=== PATIENT | male | born 1990 | race Caucasian/White ===

== ENCOUNTER 2023-03-01 21:09 | Day surgery (SDC) | payer OTHER ==
[2023-03-01 21:26] VITALS: BMI 38.6
[2023-03-01] MEDS ORDERED: PIPERACILLIN/TAZOB 4.5 GM 4.5 GM in DEXTROSE 5%-WATER 100 ML IVPB ONE (22:00)
[2023-03-01] MEDS ORDERED: VANCOMYCIN 1 GM/200 ML PREMIX BAG (RESTRICTED TO ID ONLY) IVPB ONE (22:00)
[2023-03-01] MEDS ORDERED: PIPERACILLIN/TAZOB 4.5 GM 4.5 GM/100 ML BAG IVPB ONE (22:20)
[2023-03-01 22:21] LABS: BASO % 0.7 % (0-2.0); EOS % 1.3 % (0-4.5); HEMATOCRIT 36.5 % (35.4-49); HEMOGLOBIN 12.7 GM/dL (11.7-16.9); LYMPH % 26.8 % (8-40); MCH 26.1 pg (25.7-33.7); MCHC 34.7 g/dl (32.0-35.9); MEAN PLT VOLUME 6.6 fl (7.5-11.1); NEUT % 68.2 % (42.8-82.8); PLATELET COUNT 395 10^3/uL (134-434); RBC 4.87 M/mm3 (4.00-5.60); RDW 15.7 % (11.9-15.9); WHITE BLOOD COUNT 12.3 K/mm3 (4.0-10.0)
[2023-03-01 22:27] LABS: INR 1.22 (0.83-1.09); PROTHROMBIN TIME (PATIENT) 14.1 SEC (9.7-13.0)
[2023-03-01 22:30] LABS: ACTIVATED PTT 35.3 SECONDS (25.2-36.5)
[2023-03-01 22:41] LABS: CALCIUM 9.1 mg/dL (8.5-10.1); MAGNESIUM 1.9 mg/dL (1.8-2.4)
[2023-03-01 22:42] LABS: ALBUMIN 3.6 g/dl (3.4-5.0)
[2023-03-01 22:46] LABS: BILIRUBIN,TOTAL 0.4 mg/dL (0.2-1); TOT PROT 8.1 g/dl (6.4-8.2)
[2023-03-01] MEDS ORDERED: VANCOMYCIN/WATER FOR INJ (PEG) 1,000 MG/200 ML BAG IVPB ONE (22:59)
[2023-03-02] MEDS ORDERED: ceFAZolin SODIUM 1 GM VIAL IVPB ONE
[2023-03-02] MEDS ORDERED: ACETAMINOPHEN 1000 MG/100 ML BAG IVPB PRN ×2 (10:33→13:59)
[2023-03-02] MEDS ORDERED: SODIUM CHLORIDE 1,000 ML IV SCH (10:45)
[2023-03-02] MEDS ORDERED: PIPERACILLIN/TAZOB 3.375 GM 3.375 GM in DEXTROSE 5%-WATER - 50 ML IVPB SCH ×5 (11:00→18:00)
[2023-03-02] MEDS ORDERED: MIDAZOLAM HCL 2 MG/2 ML SINGLE DOSE VIAL ONE (11:51)
[2023-03-02] MEDS ORDERED: PROPOFOL 20 ML ONE (12:13)
[2023-03-02] MEDS: SODIUM CHLORIDE 1,000 ML IV SCH (16:15)
[2023-03-02 17:46] VITALS: RESP 18
[2023-03-02] MEDS: PIPERACILLIN/TAZOB 3.375 GM 3.375 GM in DEXTROSE 5%-WATER - 50 ML IVPB SCH (17:46)
[2023-03-03] MEDS: PIPERACILLIN/TAZOB 3.375 GM 3.375 GM in DEXTROSE 5%-WATER - 50 ML IVPB SCH ×3 (01:38→17:37)
[2023-03-03 09:04] LABS: HEMATOCRIT 29.9 % (35.4-49); HEMOGLOBIN 10.9 GM/dL (11.7-16.9); MCH 27.4 pg (25.7-33.7); MCHC 36.4 g/dl (32.0-35.9); MEAN CELL VOLUME 75.3 fl (80-96); MEAN PLT VOLUME 6.5 fl (7.5-11.1); PLATELET COUNT 330 10^3/uL (134-434); RBC 3.97 M/mm3 (4.00-5.60); RDW 15.4 % (11.9-15.9); WHITE BLOOD COUNT 10.7 K/mm3 (4.0-10.0)
[2023-03-03 09:20] LABS: ALBUMIN 3.2 g/dl (3.4-5.0); BLOOD UREA NITROGEN 14.7 mg/dL (7-18); CALCIUM 8.9 mg/dL (8.5-10.1); MAGNESIUM 1.9 mg/dL (1.8-2.4)
[2023-03-03 09:25] LABS: BILIRUBIN,TOTAL 0.8 mg/dL (0.2-1)
[2023-03-03 13:45] VITALS: BP 124/74; PULSE 86; TEMP 97.5
[2023-03-03] MEDS ORDERED: ACETAMINOPHEN 500 MG TABLET (FP) PO PRN (14:15)
[2023-03-03] MEDS: SODIUM CHLORIDE 1,000 ML IV SCH (16:10)
== END 2023-03-03 18:30 | disposition home or self-care (01) ==
LOC: JER 21:09 → JERBED 22:01 → UNDOADMOB 22:01 → INTOOBSV 03-02 10:32 → OBSVTOIN 03-02 10:32 → JASUSAT 03-02 15:01 → J7W 03-02 16:58 → JASUSAT 03-03 18:30
PROVIDERS: ATTEND Family Medicine
PROC: 0J970ZX Drainage of Back Subcutaneous Tissue and Fascia, Open Approach, Diagnostic (ICD-10-PCS; principal; 2023-03-02 15:00)
DX: L02.212 Cutaneous abscess of back [any part, except buttock and flank] (principal)
CPT/HCPCS: 0241U-QW; 36415; 71045-TC-FY; 80053; 83735; 85025; 85027; 85610; 85730; 86850; 86900; 86901; 87070; 87186; 87205; 88304-TC; 93005; 93010; 94760; 99285-25

== ENCOUNTER 2024-02-15 08:34 | Inpatient (IN) | payer OTHER ==
[2024-02-15 08:41] VITALS: BMI 37.3
[2024-02-15] MEDS ORDERED: ACETAMINOPHEN INJECTION 100 ML IVPB ONE (09:55)
[2024-02-15] MEDS: ACETAMINOPHEN 1000 MG/100 ML BAG IVPB ONE (10:03)
[2024-02-15 10:12] LABS: HEMATOCRIT 36.1 % (35.4-49); HEMOGLOBIN 12.3 GM/dL (11.7-16.9); MCH 24.8 pg (25.7-33.7); MCHC 33.9 g/dl (32.0-35.9); MEAN CELL VOLUME 73.3 fl (80-96); MEAN PLT VOLUME 6.9 fl (7.5-11.1); PLATELET COUNT 322 10^3/uL (134-434); RBC 4.93 M/mm3 (4.00-5.60); RDW 14.2 % (11.9-15.9); WHITE BLOOD COUNT 22.8 K/mm3 (4.0-10.0)
[2024-02-15 10:14] LABS: INR 1.58 (0.83-1.09); PROTHROMBIN TIME (PATIENT) 18.2 SEC (9.7-13.0)
[2024-02-15 10:21] LABS: POTASSIUM 3.2 mmol/L (3.5-5.1)
[2024-02-15 10:23] LABS: CALCIUM 8.5 mg/dL (8.5-10.1)
[2024-02-15 10:24] LABS: ALBUMIN 2.8 g/dl (3.4-5.0); BLOOD UREA NITROGEN 8.2 mg/dL (7-18)
[2024-02-15 10:27] LABS: CREATININE 0.9 mg/dL (0.55-1.3)
[2024-02-15 10:28] LABS: TOT PROT 7.4 g/dl (6.4-8.2)
[2024-02-15 10:39] LABS: ANISOCYTOSIS 0; MACROCYTOSIS 0
[2024-02-15] MEDS ORDERED: ONDANSETRON 4 MG/2 ML VIAL IVPUSH PRN ×4 (12:42→15:40)
[2024-02-15] MEDS ORDERED: oxyCODONE HCL 5 MG TABLET PO PRN ×2 (12:42→15:40)
[2024-02-15] MEDS ORDERED: LACTATED RINGERS SOLUTION 1,000 ML IV SCH (12:45)
[2024-02-15] MEDS ORDERED: PROPOFOL 20 ML ONE (12:50)
[2024-02-15] MEDS ORDERED: MIDAZOLAM HCL 2 MG/2 ML SINGLE DOSE VIAL ONE (12:51)
[2024-02-15] MEDS ORDERED: FENTANYL CITRATE/PF 50 MCG/ML VIAL ONE ×2 (12:51→14:49)
[2024-02-15] MEDS ORDERED: LIDOCAINE HCL 1%, 10 MG/ML (20ML VIAL) ONE (13:09)
[2024-02-15] MEDS ORDERED: SUCCINYLCHOLINE CHLORIDE 200 MG/10 ML SYRINGE ONE (14:27)
[2024-02-15] MEDS: LACTATED RINGERS SOLUTION 1,000 ML IV SCH (16:03)
[2024-02-15] MEDS: VANCOMYCIN/WATER FOR INJ (PEG) 1,000 MG/200 ML BAG IVPB ONE (16:05)
[2024-02-15] MEDS: PIPERACILLIN/TAZOB 3.375 GM 3.375 GM in DEXTROSE 5%-WATER - 50 ML IVPB SCH (18:15)
[2024-02-16 09:28] LABS: HEMATOCRIT 35.3 % (35.4-49); HEMOGLOBIN 11.7 GM/dL (11.7-16.9); MCH 24.7 pg (25.7-33.7); MCHC 33.1 g/dl (32.0-35.9); MEAN CELL VOLUME 74.7 fl (80-96); MEAN PLT VOLUME 7.2 fl (7.5-11.1); PLATELET COUNT 356 10^3/uL (134-434); RBC 4.73 M/mm3 (4.00-5.60); RDW 14.2 % (11.9-15.9); WHITE BLOOD COUNT 26.4 K/mm3 (4.0-10.0)
[2024-02-16 09:47] LABS: POTASSIUM 3.8 mmol/L (3.5-5.1)
[2024-02-16 10:02] LABS: ALBUMIN 2.5 g/dl (3.4-5.0); BLOOD UREA NITROGEN 18.3 mg/dL (7-18); CALCIUM 8.6 mg/dL (8.5-10.1)
[2024-02-16 10:06] LABS: CREATININE 0.9 mg/dL (0.55-1.3)
[2024-02-16 10:07] LABS: BILIRUBIN,TOTAL 0.4 mg/dL (0.2-1); TOT PROT 6.9 g/dl (6.4-8.2)
[2024-02-16 10:40] LABS: ANISOCYTOSIS 3+; MACROCYTOSIS 0
[2024-02-16] MEDS ORDERED: CEFAZOLIN SODIUM 2 GM VIAL IVPB SCH (11:15)
[2024-02-16] MEDS: PIPERACILLIN/TAZOB 3.375 GM 3.375 GM in DEXTROSE 5%-WATER - 50 ML IVPB SCH (11:34)
[2024-02-16] MEDS: LACTATED RINGERS SOLUTION 1,000 ML IV SCH (11:35)
[2024-02-16] MEDS: CEFAZOLIN SODIUM 2 GM in DEXTROSE 5%-WATER 100 ML IVPB SCH (11:38)
[2024-02-16] MEDS: VANCOMYCIN PREMIX 1.5 GM 1,500 MG/300 ML BAG IVPB SCH (12:24)
[2024-02-16] MEDS: INSULIN ASPART SLIDING SCALE (NOVOLOG) 1 VIAL SQ SCH (21:28)
[2024-02-17 06:41] VITALS: BP 128/81; PULSE 78; RESP 20; TEMP 98.1
[2024-02-17 09:14] LABS: HEMATOCRIT 33.5 % (35.4-49); HEMOGLOBIN 11.5 GM/dL (11.7-16.9); MCH 25.4 pg (25.7-33.7); MCHC 34.2 g/dl (32.0-35.9); MEAN CELL VOLUME 74.2 fl (80-96); MEAN PLT VOLUME 7.1 fl (7.5-11.1); PLATELET COUNT 408 10^3/uL (134-434); RBC 4.52 M/mm3 (4.00-5.60); RDW 14.6 % (11.9-15.9); WHITE BLOOD COUNT 21.6 K/mm3 (4.0-10.0)
[2024-02-17 09:32] LABS: POTASSIUM 3.8 mmol/L (3.5-5.1)
[2024-02-17 09:36] LABS: CALCIUM 8.5 mg/dL (8.5-10.1)
[2024-02-17 09:37] LABS: ALBUMIN 2.7 g/dl (3.4-5.0); BLOOD UREA NITROGEN 17.2 mg/dL (7-18)
[2024-02-17 09:40] LABS: CREATININE 0.8 mg/dL (0.55-1.3)
[2024-02-17 09:41] LABS: BILIRUBIN,TOTAL 0.4 mg/dL (0.2-1)
[2024-02-17 09:42] LABS: TOT PROT 7.1 g/dl (6.4-8.2)
[2024-02-17 09:50] LABS: ANISOCYTOSIS 3+; MACROCYTOSIS 0
== END 2024-02-17 15:27 | disposition left against medical advice (07) | DRG 364 ==
LOC: JER 08:34 → JERBED 11:23 → J5S 16:43
PROVIDERS: ADMIT Internal Medicine; ATTEND Internal Medicine
PROC: 0J970ZZ Drainage of Back Subcutaneous Tissue and Fascia, Open Approach (ICD-10-PCS; principal; 2024-02-16)
DX: L02.11 Cutaneous abscess of neck (principal); R73.9 Hyperglycemia, unspecified
CPT/HCPCS: 36415; 80048; 80053; 83036; 85025; 85610; 85730; 86850; 86900; 86901; 87040; 87070; 87186; 87205; 93005; 93010; 94760; 99285-25; J0131